=== PATIENT | male | born 1985 | race Caucasian/White ===

== ENCOUNTER 2019-07-16 23:48 | Inpatient (IN) | payer SELFPAY ==
[2019-07-16] MEDS ORDERED: Ondansetron PF 4 MG/2 ML Vial ONE (23:53)
[2019-07-17 00:01] LABS: #Basophils 0.1 thou/uL (0.0-0.2); #Eosinphils 0.2 thou/uL (0.0-0.7); #Monocytes 1.5 thou/uL (0.11-0.59); #Neutrophils 10.1 thou/uL (1.40-6.50); %Basophils 0.5 % (0.0-1.0); %Eosinophils 1.2 % (0.0-10.0); %Lymphocytes 14.4 % (21.0-51.0); %Monocytes 10.9 % (0.0-10.0); %Neutrophils 73.1 % (42.0-75.0); Hemoglobin 13.5 g/dL (14.0-18.0); Mean Corpuscular HGB CONC 35.5 g/dL (32.0-36.0); Mean Corpuscular Hemoglobin 32.3 pg (27.0-31.0); Mean Corpuscular Volume 90.8 fL (78.0-98.0); Platelet Count 171 thou/uL (130-400); RBC Distribution Width 11.3 % (11.5-14.5); Red Blood Cell (RBC) Count 4.18 mill/uL (4.70-6.10); White Blood Cell (WBC) Count 13.8 thou/uL (4.8-10.8)
[2019-07-17 00:10] LABS: PTT 23.3 SEC (22.9-36.1); Prothrombin Time 13.5 SEC (12.0-14.7)
[2019-07-17 00:17] LABS: Iron Binding Capacity, Total 231 mcg/dL (261-462)
[2019-07-17 00:18] LABS: Iron 34 ug/dL (65-175)
--- NOTE | 2019-07-17 00:31 | PDOC.FPRHP ---
- History of Present Illness Chief Complaint: acute GI bleed History of Present Illness: Edinson Guillen is a 33 year old M with a PMH of eosinophilic esophagitis who presented to the ED with acute onset of BRBPR at 9 pm today. Had EGD and Colonoscopy earlier yesterday 07/16/19 by Nora. He had dilation of esophagus and 5 polyps removed during procedure. Has been complaining of chronic abdominal pain. He does not take any medications. Pt reported 20 episodes of vomiting today with no blood, SOB, and chills. He was recovering from the procedure when the bleeding began. After BRBPR did not cease pt called GI on-call, Dr. Oconnell, who told family to be seen in the emergency department. In the emergency department pt was found to be hypotensive and resuscitated with 2 U of pRBC's, 1 U FFP, and 1 L of fluids. He was given zofran for nausea. Pt responded to fluids, blood products with pressures remaining in SBP 100's/110's. Pt was conversation during interview, pt seen with Dr. Oconnell at bedside. Pt taken for colonoscopy. Dr. Oconnell thinks his bleed is less likely from esophageal dilation. ED Course: In the ED, he was given 1 L NS and zofran - Allergies/Adverse Reactions Allergies Allergy/AdvReac Type Severity Reaction Status Date / Time No Known Drug Allergies Allergy Verified 07/17/19 03:23 - Home Medications Medication Instructions Recorded Confirmed Type No Known 07/17/19 07/17/19 History - History PMHx: GERD, colonic polyps s/p biopsy X5 PSHx: colonoscopy 07/16/19 FHx: noncontributory Social: denies smoking, occasional alcohol, denies drug use - Review of Systems General: denies: fever/chills, weight/appetite/sleep changes Eyes: denies: eye pain, vision changes ENT: denies: nasal congestion, rhinorrhea Respiratory: denies: cough, congestion, shortness of breath Cardiovascular: denies: chest pain, palpitation, edema Gastrointestinal: reports: nausea, vomiting, abdominal pain, GI bleeding Genitourinary: denies: dysuria, polyuria Skin: denies: rashes, lesions Musculoskeletal: denies: pain, tenderness, stiffness, swelling Neurological: denies: numbness, seizure Psychological: denies: anxiety, depression - Vital signs BP: 11/56 HR: 66 RR: 14 Tmax: 97.6 Pox: 97% on RA - Physical Exam Constitutional: NAD, awake, alert and oriented, well developed HEENT: normocephalic and atraumatic, PERRLA, EOMI, conjunctiva clear, grossly normal vision, grossly normal hearing, MMM Neck: supple, FROM, no JVD Chest: no-tender to palpation, no lesions Heart: RRR, normal S1/S2, no murmurs/rubs/gallops -Heart: Distant heart sounds Lungs: CTAB, no respiratory distress, good air movement, no rales/rhonchi, no wheezing Abdomen: soft, non-tender, bowel sounds present Neurological: CN II-XII intact Heme/Lymphatic: no purpura, no petechia Psychiatric: good judgment and insight FMR H&P: Results - Labs Result Diagrams: 07/17/19 03:28 07/17/19 04:52 Lab results: WBC 13.8 thou/uL (4.8-10.8) H 07/16/19 23:53 Hgb 13.5 g/dL (14.0-18.0) L 07/16/19 23:53 Hct 38.0 % (42.0-52.0) L 07/16/19 23:53 MCV 90.8 fL (78.0-98.0) 07/16/19 23:53 Plt Count 171 thou/uL (130-400) 07/16/19 23:53 Neutrophils % 73.1 % (42.0-75.0) 07/16/19 23:53 FMR H&P: A/P - Problem List (1) Acute GI bleeding Current Visit: Yes Status: Acute Code(s): K92.2 - GASTROINTESTINAL HEMORRHAGE, UNSPECIFIED (2) Post-operative complication Current Visit: Yes Status: Acute Code(s): T81.9XXA - UNSPECIFIED COMPLICATION OF PROCEDURE, INITIAL ENCOUNTER - Plan Pt is a 33 yo male with PMH significant for eosinophilic esophagitis who presents with BRBPR, post-op complication 2/2 colonoscopy with polyp removal, EGD with esophageal dilation: # GI Bleed # Post-Op Complication S/P 2 U pRBC, 1 U FFP, and 1 L of fluids - mass transfusion protocol initiated on arrival to ED. Hgb 13.5 - Dr. Oconnell consulted, performing colonoscopy now - Monitor blood pressures in ICU. Likely will not become hypotensive with resolution of bleeding source. He responded well to fluids, blood products. - AM hgb - Protonix # GERD - protonix Fluids: per surgical team Diet: NPO VTE: scd's Code: full Dispo: > 48 hr stay FMR H&P: Upper Level - Plan Date/Time: 07/17/19 0031 I, Andrew Atkinson MD, have evaluated this patient and agree with findings/plan as outlined by internet project manager resident. Pertinent changes/additions are listed here. Edinson Guillen is a 33 year old M with a PMH of eosinophilic esophagitis who presented to the ED for acute GI bleed. Patient had diagnostic EGD/colonoscopy done yesterday 07/16/[address] Hutchinson and had 5 colonic polyps biopsied. While at home after his procedure, he had about 20 episodes of nonbloody vomiting. At around 9 pm, he developed abdominal cramping, chills and dyspnea and had large BRBPR. He was brought to the ED where he had initial BP in the 70s systolic. He had another large red blood BM in the ED. Pt was given 1 L NS and massive transfusion protocol was initiated. He received 2 U pRBC and 1 U FFP and BPs improved to the 100s systolic. Dr. Oconnell was consulted from ED and recommended admission to CCU and planned to take patient to OR immediately. Pt denies any fever, chest pain, palpitations. In the ED labs were WBC count 13.0 , Hg 13.5, Platelets 171, INR 1.0, PT 13.5, PTT 27.3, Cr 0.99, Iron 34, TIBC 231 , Ferritin 306. Pt being admitted to CCU for close monitoring after going to OR directly from ED. Dr. Oconnell evaluated pt in ED. Will monitor vitals closely and repeat labs and transfuse as needed. Anticipate hospital stay >48 hours. Please see internet project manager note above for full H&P, which I have reviewed and agree with. Addendum - Attending - Attending Attestation Date/Time: 07/17/19 6640 I personally evaluated the patient and discussed the management with Dr. Dotson I agree with the History, Examination, Assessment and Plan documented above with any addition or exceptions noted below - 33 year old M with a PMH of eosinophilic esophagitis who presented to the ED with acute onset of BRBPR at 9 pm today. Had EGD and Colonoscopy earlier yesterday 07/16/[address] Melendez. He had dilation of esophagus and 5 polyps removed during procedure. Pt developed multiple episodes of vomiting at home after the procedure with no blood but noted onset of bright red blood per rectum. After BRBPR did not cease pt called GI on-call, Dr. Oconnell, who told family to be seen in the emergency department. In the emergency department pt was found to be hypotensive and resuscitated with 2 U of pRBC's, 1 U FFP, and 1 L of fluids. He was given zofran for nausea. Pt responded to fluids, blood products with pressures remaining in SBP 100's/110's. Afebrile VSS. Exam repeated by me and agree with resident's findings. A/P: 1) Hematochezia - most likely due to post-polypectomy bleeding. Dr. Oconnell at bedside and plans to take patient to endoscopy for repeat colonoscopy for control of bleeding. H/H =13.5/38.0. Will monitor in ICU after procedure with serial H/Hs and transfuse as indicated. 2) Hypotension- resolved ; continue to monitor closely.
[2019-07-17 00:49] LABS: ALT (SGPT) 15 U/L (8-55); AST (SGOT) 18 U/L (5-34); Albumin 3.8 g/dL (3.5-5.0); Alkaline Phosphatase 63 U/L (40-110); Anion Gap 14 mmol/L (10-20); BUN (Urea Nitrogen) 12 mg/dL (8.9-20.6); Bilirubin, Total 0.7 mg/dL (0.2-1.2); Calc. Creatinine Clearance 0 mL/min (70-130); Calcium 8.9 mg/dL (7.8-10.44); Carbon Dioxide 19 mmol/L (22-29); Chloride 109 mmol/L (98-107); Estimated GFR-MDRD 88; Globulin 2.3 g/dL (2.4-3.5); Glucose 138 mg/dL (70-105); Potassium 4.2 mmol/L (3.5-5.1); Protein, Total 6.1 g/dL (6.0-8.3); Sodium 138 mmol/L (136-145)
[2019-07-17] MEDS ORDERED: Sodium Chloride 0.9% (PF) 10 ML VIAL FS PRN (01:16)
--- NOTE | 2019-07-17 01:42 | CON ---
DATE OF CONSULTATION: 07/17/2019 REASON FOR CONSULTATION: Lower GI bleeding after polypectomy. HISTORY OF PRESENT ILLNESS: Natasha Guillen is a 33-year-old man recently seen by my colleague, Dr. Thom Melendez. He was evaluated in clinic a few weeks ago for ongoing colicky abdominal pain for several weeks with frequent nausea and vomiting. This is on a history of eosinophilic esophagitis with some progressive dysphagia. Dr. Melendez performed EGD and colonoscopy yesterday morning, about 17 hours ago. The EGD demonstrated characteristic features of eosinophilic esophagitis, a 5 cm hiatal hernia and a shallow Schatzki's ring. Dr. Melendez obtained biopsies from the stomach and also performed dilation of the esophagus to 15 mm with mild mucosal disruption and moderate improvement in luminal narrowing. The colonoscopy demonstrated a 3 mm polyp in the ascending colon, which was removed with hot snare. A 7 mm polyp in the ascending colon, which was flat and also removed with hot snare. Two small polyps in the transverse colon, which were removed with cold snare and one 4 mm polyp in the descending colon, which was removed with hot snare. The patient reports that following the procedure, he went home and rested, continued to have some baseline abdominal discomfort and nausea, really did not eat much throughout the day and then about 9 p.m. the patient suddenly passed a large amount of bright red blood and clots from the rectum. This occurred every few minutes for a couple of hours. He finally called me at home and I recommended presenting to the emergency department. Upon presentation around midnight, the patient was found to be diaphoretic and hypotensive as well as mildly tachycardic. He received IV fluid resuscitation and also 2 units of packed red blood cells. Copious amounts of blood per rectum has continued since his arrival. Initial laboratory studies actually look pretty good with hemoglobin of 13.5, WBC 13.8. He has just his baseline abdominal discomfort, but no significant increase. He underwent CT scan, which shows no evidence of any free air. REVIEW OF SYSTEMS: Full review of systems including constitutional, head, eyes, ears, nose, throat, GI, , cardiovascular, respiratory, musculoskeletal, neurologic systems is negative except as noted in the HPI. PAST MEDICAL HISTORY: Eosinophilic esophagitis, chronic dysphagia, acid reflux, tobacco abuse. ALLERGIES: NO KNOWN DRUG ALLERGIES. MEDICATIONS: None. SOCIAL HISTORY: He will drink a couple of beers per day. He is a light tobacco smoker. No drug use. FAMILY HISTORY: Noncontributory. PHYSICAL EXAMINATION: VITAL SIGNS: Blood pressure is 104/54, pulse 73, 97% oxygen saturation on room air. GENERAL: A 33-year-old man, lying in bed comfortably, in no distress. SKIN: He has multiple tattoos. No jaundice. No rashes were palpable. EYES: No scleral icterus. Extraocular movements intact. ENT: Mucous membranes moist. No oral lesions. LYMPH: No submandibular or supraclavicular lymphadenopathy. THYROID: Nontender to palpation. HEART: Regular rate and rhythm. LUNGS: Clear to auscultation bilaterally. ABDOMEN: Bowel sounds are present. Soft, nontender to palpation. EXTREMITIES: No peripheral edema. VESSELS: Radial pulses 2+ bilaterally. NEUROLOGIC: Cranial nerves 2-12 intact bilaterally. No focal deficits. RECTAL: Rectal exam is deferred until emergent colonoscopy, which is being planned in the next few minutes. He has a large amount of bright red blood soaking the sheets. LABORATORY STUDIES: Hemoglobin 13.5, WBC 13.8, platelets 171. INR 1.0, iron 34, TIBC 231. ASSESSMENT/PLAN: 1. Post polypectomy bleeding. 2. Chronic abdominal pain. The patient's hemoglobin is actually satisfactory at 13.5, but I certainly expect this is going to drop given the large amount of blood that we are seeing here and that he had for a couple of hours prior to presentation. He was mildly hypotensive on presentation, but this has improved. We are going to proceed with the emergent unprepped colonoscopy this evening to try to identify the bleeding site. Discussed this in detail with the patient and his and they desire to proceed. Plan is for admission to the ICU following the procedure. Further recommendations following colonoscopy. Job ID: [id number]
[2019-07-17] MEDS ORDERED: Acetaminophen 325 MG TAB PO PRN (03:13)
[2019-07-17 03:28] VITALS: BMI 29.9
--- NOTE | 2019-07-17 03:44 | OP ---
DATE OF PROCEDURE: 07/17/2019 ASSISTANCE SURGEON: None. PROCEDURE PERFORMED: Colonoscopy with control of hemorrhage (hemoclip placement x2). INDICATION: Post polypectomy hemorrhage. MEDICATIONS: See Anesthesia record. FINDINGS: After discussion of the risks, benefits, and alternatives of the procedure, informed consent was obtained and witnessed. Pre-endoscopic cardiopulmonary examination was satisfactory. Time-out was performed before sedation was achieved. Sedation was achieved with Anesthesia assistance in the endoscopy unit. Digital rectal exam was performed, which was unremarkable. A Pentax adult colonoscope was inserted into the anus and passed forward to the cecum in the usual fashion. The cecal base was identified by the appendiceal orifice, as well as the ileocecal valve. The terminal ileum was intubated. The ileal mucosa appeared normal. There was a small amount of fresh blood within the terminal ileum, but mostly yellowish soft fecal material. There is no evidence of any blood coming from more proximal than this area. The colonoscope was then slowly withdrawn in a gradual and circumferential manner with careful examination of the entire colonic mucosa. The entire colon was filled with a large amount of fresh blood and clots, and extensive irrigation and suctioning was performed in order to get a good examination. However, with time, I do feel that I got a good examination of the colonic mucosa. In the ascending colon, there was a single polypectomy ulcer with a visible vessel which was oozing very slowly. I placed two hemoclips to this site with good hemostasis. There is another single polypectomy site in the descending colon, which is quite shallow and small with no evidence of hemorrhage. No stigmata of bleeding or potential for bleeding. No intervention was performed at this site. I was unable to visualize any other polypectomy sites. Retroflexion in the rectum was unremarkable. I passed the colon forward to the cecum again and re-examined the entire mucosa. At the end of the exam, there is only a small amount of blood residue on the colonic he, as I was really able to clean out the colon of blood pretty well. There was no active bleeding from anywhere in the colon by the end of the examination. The colonoscope was completely withdrawn and the patient allowed to recover. The patient tolerated the procedure well. There were no immediate postprocedure complications. IMPRESSION: 1. Single polypectomy ulcer with slowly using visible vessel in the ascending colon. Two hemoclips placed to this site with good hemostasis. 2. Single shallow polypectomy site without bleeding in the descending colon, no intervention performed at this site. 3. Fresh blood and clots throughout the entire colon, extensively irrigated and suctioned. 4. No active bleeding at the end of the exam. RECOMMENDATION: 1. Clear liquid diet. 2. Monitor overnight in the ICU. 3. Trend H and H, and transfuse as needed. Job ID: [id number]
[2019-07-17 04:20] LABS: Hemoglobin 11.7 g/dL (14.0-18.0); Mean Corpuscular HGB CONC 33.8 g/dL (32.0-36.0); Mean Corpuscular Hemoglobin 32.8 pg (27.0-31.0); Mean Corpuscular Volume 97.1 fL (78.0-98.0); RBC Distribution Width 12.5 % (11.5-14.5); Red Blood Cell (RBC) Count 3.56 mill/uL (4.70-6.10)
[2019-07-17 04:39] LABS: #Basophils 0.1 thou/uL (0.0-0.2); #Eosinphils 0.1 thou/uL (0.0-0.7); #Lymphocytes 0.7 thou/uL (1.20-3.40); #Monocytes 0.9 thou/uL (0.11-0.59); #Neutrophils 7.3 thou/uL (1.40-6.50); %Eosinophils 0.8 % (0.0-10.0); %Monocytes 9.7 % (0.0-10.0); %Neutrophils 80.4 % (42.0-75.0); Mean Platelet Volume 9.5 fL (7.4-10.4); Platelet Count 116 thou/uL (130-400); Platelet Morphology Comment Appears Decreased
[2019-07-17] MEDS: Dextrose 5 % And 0.9 % NaCl 1,000 ML IV SCH ×2 (05:20→09:55)
[2019-07-17 05:33] LABS: Chloride 112 mmol/L (98-107); Sodium 140 mmol/L (136-145)
[2019-07-17 05:34] LABS: Calcium 7.7 mg/dL (7.8-10.44); Glucose 136 mg/dL (70-105)
[2019-07-17 05:36] LABS: Anion Gap 5 mmol/L (10-20); Carbon Dioxide 27 mmol/L (22-29)
[2019-07-17 05:38] LABS: BUN (Urea Nitrogen) 9 mg/dL (8.9-20.6); Calc. Creatinine Clearance 222 mL/min (70-130); Estimated GFR-MDRD Greater than 90
[2019-07-17 08:13] LABS: #Eosinphils 0.1 thou/uL (0.0-0.7); #Lymphocytes 0.8 thou/uL (1.20-3.40); #Monocytes 0.7 thou/uL (0.11-0.59); #Neutrophils 4.8 thou/uL (1.40-6.50); %Eosinophils 0.8 % (0.0-10.0); %Monocytes 10.6 % (0.0-10.0); %Neutrophils 76.5 % (42.0-75.0); Hemoglobin 10.4 g/dL (14.0-18.0); Mean Corpuscular HGB CONC 34.6 g/dL (32.0-36.0); Mean Corpuscular Hemoglobin 31.7 pg (27.0-31.0); Mean Corpuscular Volume 91.7 fL (78.0-98.0); Mean Platelet Volume 7.8 fL (7.4-10.4); Platelet Count 103 thou/uL (130-400); RBC Distribution Width 12.4 % (11.5-14.5); Red Blood Cell (RBC) Count 3.28 mill/uL (4.70-6.10); White Blood Cell (WBC) Count 6.3 thou/uL (4.8-10.8)
--- NOTE | 2019-07-17 08:33 | CT ---
PRELIMINARY REPORT/[facility]/EMERGENCY AFTER HOURS PROCEDURE: Receipt of this report by the clinical staff was confirmed with Tracey Smith MD by Alice Simon on Jul 17, 2019 01:12:00 [employer]. Addendum electronically signed by Alice Simon on July 17, 2019 1:12:27 AM [employer] EXAM: CT Abdomen and Pelvis with Intravenous Contrast CLINICAL HISTORY: M33 presents to ED with c/o colonoscopy complication. Upon arrival in ED pt was able to get into whee l chair when he rolled his eyes back and started to bleed actively from the rectum. Pt reports 20 epi sodes of vomiting today with no blood. Pt reports when using the restroom he had SOB and chills. Pt r eports abd pain upon palpitation. PT's states he had a colonoscopy done this morning by Dr. Soto is and has slept all day after the procedure. Pt's reported pt started to have multiple episode' s of vomiting around 8-9pm and has been feeling sick since then. TECHNIQUE: Axial computed tomography images of the abdomen and pelvis with intravenous contrast. CONTRAST: With; ISOVUE 370,100mL COMPARISON: None provided. FINDINGS: LUNG BASES: No basilar airspace consolidation or pleural effusion. LIVER: Unremarkable. GALLBLADDER AND BILE DUCTS: Unremarkable. No calcified stone. No ductal dilation. PANCREAS: Unremarkable. SPLEEN: Unremarkable. ADRENAL GLANDS: Unremarkable. KIDNEYS, URETERS, AND BLADDER: Unremarkable. No hydronephrosis or nephrolithiasis. No ureteral or jessika dder calculi. STOMACH AND BOWEL: No obstruction. There is fluid throughout the colon. There is some increased den sity within the lumen in the cecum and given the history, active bleeding is of concern. APPENDIX: No CT evidence for appendicitis. PERITONEUM: No free fluid. No free air. LYMPH NODES: No lymphadenopathy. REPRODUCTIVE: Unremarkable as visualized. VASCULATURE: No aortic aneurysm. BONES: No fracture or suspicious osseous abnormality. ABDOMINAL WALL AND SOFT TISSUES: Unremarkable. IMPRESSION: 1. There is fluid throughout the colon. Some high density fluid within the cecum in conjunction wit h the clinical history is somewhat concerning for blood product/hemorrhage within the lumen. There i s no free intraperitoneal air. 2. No additional acute abnormality. ELECTRONICALLY SIGNED BY: Magda You D.O. Jul 17, 2019 1:09:04 AM [employer] This report is intended for review by the ordering physician only, in accordance of law. If you recei ve this report in error, please call [facility] at [phone]. FINAL REPORT CT ABDOMEN AND PELVIS WITH CONTRAST: HISTORY: Abdominal pain. COMPARISON: None. FINDINGS: Tree-in-bud opacities left lower lobe may reflect aspiration. Abnormal dilatation of the ascending c olon with high-density intraluminal debris suggesting hemorrhage. A few areas of abnormal mucosal th ickening of the transverse colon. Mucosal irregularity of the terminal ileum. The appendix is unrem arkable. No free intraperitoneal gas or fluid. There appears to be some dissection of gas to the mu scularis at the rectosigmoid junction axial image 92. IMPRESSION: 1. Findings and impression are concordant with the preliminary report. 2. Trace free fluid in the pelvis may be reactive or from over-hydration from recent procedure. 3. Suggestion of focal dissection of gas to the muscularis propria at the rectosigmoid junction with out extraluminal air axial image 92. 4. Distal small bowel as well as transverse colon, appearance of what can be seen with inflammatory bowel disease. Recommend correlation with colonoscopic findings. 5. Numerous too small to characterize hypodensities of the liver. This can be seen with cysts. POS: CET
[2019-07-17] MEDS ORDERED: Pantoprazole 40 MG VIAL IVP SCH (09:00)
[2019-07-17] MEDS ORDERED: PHENYLEPHRINE-NS 100 MCG/ML 10 ML SYRINGE ONE (09:38)
[2019-07-17] MEDS ORDERED: ePHEDrine/0.9% NaCl/PF SYRINGE 50 mg/10 ml ONE (09:38)
[2019-07-17] MEDS ORDERED: Lidocaine 1% PF 5 ML VIAL ONE (09:38)
[2019-07-17] MEDS ORDERED: PROPOFOL 200 MG/20 ML VIAL ONE (09:38)
--- NOTE | 2019-07-17 10:49 | PRG ---
DATE OF SERVICE: 07/17/2019 SUBJECTIVE: Mr. Guillen has had no bleeding since his endoscopy last night. The nurses note he had a transient hypotension with pressure in the 80s earlier, but was asymptomatic. His hemoglobin has stabilized at 10. OBJECTIVE: VITAL SIGNS: Presently, pulse is 59, blood pressure 108/49, O2 saturation 100%, respirations 17. GENERAL: He is alert, oriented, in no distress. ABDOMEN: Soft and nontender. IMAGING: The patient had a CAT scan when he came in last night for abdominal pain that was negative with no signs of perforation. LABORATORY DATA: Hemoglobin was 13 at 2300 hours, 11.7 at 3 and 10.4 at 8 this morning. He did receive 3 units of blood in the emergency room and apparently plasma. Platelet count 103 down from 131 on admission. Basic metabolic normal, comprehensive metabolic profile on admission normal. ASSESSMENT: Post polypectomy bleed treated with colonoscopy, have identified visible vessel and ascending colon ulcer and hemoclips were placed. PLAN: Transfer to floor. Advance diet. Hemoglobin and hematocrit later this afternoon, if no bleeding can go home today. Job ID: [id number]
[2019-07-17 12:44] VITALS: BP 101/62; TEMP 98.4
--- NOTE | 2019-07-17 13:27 | CON ---
DATE OF CONSULTATION: 07/17/2019 SERVICE: Pulmonary Medicine. REASON FOR CONSULTATION: ICU patient. HISTORY OF PRESENT ILLNESS: The patient is a 33-year-old white male, who was having his diarrhea worked up in the outpatient setting. Ultimately, he went for an elective colonoscopy. A polyp was identified, and he started having significant bleeding from his bottom. He denies any current fevers, chills, nausea, vomiting or diarrhea. Since he has been in the ICU, he has demonstrated very good hemodynamic stability. Prior to this event, he was having problems with GI issues worked up. All of this was outpatient issues. Overnight, he has not had any additional bloody bowel movements. He has not had any fevers, chills, cough, sputum production, nausea or vomiting. If anything, he is hoping to be able to get to eat soon. PAST MEDICAL HISTORY: 1. Gastroesophageal reflux disease. 2. Colonic polyp, status post polypectomy. PAST SURGICAL HISTORY: Colonoscopy. FAMILY HISTORY: Noncontributory. SOCIAL HISTORY: Negative for significant alcohol, tobacco or illicit drug use. He has no exposure to chemicals, dust, asbestos or tuberculosis. ALLERGIES: NO KNOWN DRUG ALLERGIES. MEDICATIONS: Lists of his inpatient medications were reviewed. No specific updates were made at this time. REVIEW OF SYSTEMS: General, head, ears, eyes, nose, throat, cardiovascular, respiratory, GI, , musculoskeletal, neurologic, and skin are negative except as mentioned in HPI. PHYSICAL EXAMINATION: VITAL SIGNS: Afebrile, pulse 61, blood pressure 93/46, respirations 8, and saturation 98%, on room air. GENERAL: The patient is awake and alert, in no apparent distress. LUNGS: Wonderful air entry with no prolonged expiratory phase or wheezing present. HEART: Normal rate, regular. ABDOMEN: Soft, nontender, and nondistended. Bowel sounds are positive. MUSCULOSKELETAL: No cyanosis or clubbing. There is no pitting in the bilateral lower extremities. NEUROLOGIC: Grossly nonfocal. LABORATORY DATA: Hemoglobin is downtrending from 13.5 to 11.7 to 10.4. Platelets 103,000. INR 1.0. Basic metabolic profile is otherwise unremarkable. Iron is low, but the ferritin levels are normal. Liver function studies are unremarkable. IMAGING: CT of the abdomen and pelvis demonstrates no acute chest issues. There is fluid throughout the colon, consistent with hemorrhage. ASSESSMENT: 1. Acute blood loss anemia. 2. Post polypectomy bleed. DISCUSSION AND PLAN: We will repeat hemoglobin this afternoon. If he remains stable, he can be considered for transition home. At this point, there is no additional signs of blood loss, and a repeat colonoscopy identified a bleeding vessel that was subsequently hemoclipped. If he remains in the ICU, Critical Care will follow. 70 minutes have been devoted to this patient in various activities. I personally reviewed all imaging studies and laboratory data noted within this document. For fifty percent of this time, I was interacting with the patient at the bedside or coordinating care with the care team. For the remainder of the time I was immediately available to the patient in the hospital unit. Job ID: [id number] [facility]
[2019-07-17] MEDS ORDERED: Iopamidol-370 76% 500 ML 1 ML ONE (13:28)
--- NOTE | 2019-07-17 13:34 | PRG ---
DATE OF SERVICE: ADDENDUM: This as an addendum to the note of Dr. Wanda Hudson. I have examined the patient and discussed the case with Dr. Hudson. I agree with her assessment and plan. Mr. Guillen is a pleasant 33-year-old man, who was admitted following a lower GI bleed following colonoscopy. He is currently hemodynamically stable after receiving 3 units of packed cells and 3 units of plasma. His current blood pressure is 101/46, his pulse rate is 60, and respirations 12. He is awake and alert, in no distress. His current hemoglobin is 10.4 with hematocrit 30.1, this as of 8 o'clock this morning. We will continue to follow with the GI Service. If his hemoglobin remained stable for the next at least afternoon or day, then he can likely go to a regular floor either later this afternoon or in the morning. In the interim, we will continue to follow with the GI Service and appreciate their input. Job ID: [id number]
[2019-07-17 13:58] LABS: Hemoglobin 10.3 g/dL (14.0-18.0)
[2019-07-18] MEDS ORDERED: FLU VACC QS2019-20(6MOS UP)/PF 60 MCG/0.5 ML SYRINGE IM ONE (07:45)
--- NOTE | 2019-07-18 09:34 | DIS ---
DATE OF ADMISSION: 07/17/2019 DATE OF DISCHARGE: 07/17/2019 ADMITTING RESIDENT: Dameon Dotson DO ADMITTING ATTENDING: Leonela Handley MD DISCHARGE RESIDENT: Wanda Hudson MD DISCHARGE ATTENDING: David Mcginnis MD CONSULTS: GI (Dr. Oconnell). PROCEDURES: Colonoscopy with control of hemorrhage, hemoclip placement x2. IMAGING: Abdomen and pelvis CT: There is fluid throughout the colon. Some high density fluid within the cecum in conjunction with the clinical history that is somewhat concerning for blood product/hemorrhage within the lumen. There is no free intraperitoneal air. No additional acute abnormality. PRIMARY DIAGNOSIS: Gastrointestinal bleed, postoperative complication. SECONDARY DIAGNOSIS: Gastroesophageal reflux disease. DISCHARGE MEDICATION: None. DISCONTINUED MEDICATIONS: 1. Blood products. 2. Tylenol. 3. Protonix. HISTORY OF PRESENT ILLNESS/HOSPITAL COURSE: The patient is a 33-year-old male with a past medical history of eosinophilic esophagitis, who presented to the ED with acute onset of bright red blood per rectum status post EGD and colonoscopy on 07/16/[address] Melendez. He had dilation of the esophagus and 5 polyps removed during the procedure. He was seen by Dr. Oconnell, the on-call GI physician, in the ER who took the patient for emergent colonoscopy as the patient was found to be hypotensive. The patient ended up receiving 3 units of packed red blood cells and 3 units of fresh frozen plasma. During the colonoscopy, Dr. Oconnell has found a single polypectomy ulcer in the ascending colon, that was oozing, in which he placed 2 hemoclips with good hemostasis. He also found another single polypectomy site in the descending colon, that was small and had no evidence of hemorrhage at the time, so that was left alone. The patient was continuously monitored in the CCU for any recurrence of bleeding after colonoscopy. His hemoglobin and hematocrit were also monitored and Dr. Melendez came to consult on the patient over the morning. He recommended that if his hemoglobin remained stable throughout the afternoon, then he could be discharged home with followup in clinic. The patient's hemoglobin remained stable at 10.4 at 8 a.m. to 10.3 at 2 p.m., and the patient was discharged in stable condition. When talking with the nurses, he had had no other episodes of bright red blood per rectum. He was evaluated on the day of discharge and was found to be in stable condition. DISPOSITION: Stable. DISCHARGE INSTRUCTIONS: 1. Location: Home. 2. Diet: Regular. 3. Activity: As tolerated. 4. Follow up with PCP within [address] Melendez within 2 weeks. Job ID: [id number]
== END 2019-07-17 15:43 | disposition home or self-care (01) | DRG 920 ==
LOC: ERS 23:48 → SDC/OP 07-17 00:45 → CCU 07-17 00:45 → T4-A 07-17 12:35
PROVIDERS: ADMIT Family Medicine; ATTEND Family Medicine
PROC: 0W3P8ZZ Control Bleeding in Gastrointestinal Tract, Via Natural or Artificial Opening Endoscopic (ICD-10-PCS; principal; 2019-07-17)
DX: K91.840 Postprocedural hemorrhage of a digestive system organ or structure following a digestive system procedure (principal); K63.3 Ulcer of intestine; D62 Acute posthemorrhagic anemia; K21.9 Gastro-esophageal reflux disease without esophagitis; I95.9 Hypotension, unspecified; Y83.8 Other surgical procedures as the cause of abnormal reaction of the patient, or of later complication, without mention of misadventure at the time of the procedure; Z98.890 Other specified postprocedural states; K20.0 Eosinophilic esophagitis; K44.9 Diaphragmatic hernia without obstruction or gangrene; K22.2 Esophageal obstruction
CPT/HCPCS: 36415; 36430; 74177; 80048; 80053; 82728; 83540; 83550; 85025; 85610; 85730; 86850; 86900; 86901; 93005; C9113; J2001; J2405; J2704; P9016; P9048; Q9967